=== PATIENT | female | born 1970 | race Two or more races ===

== ENCOUNTER 2017-01-06 19:17 | Emergency (ER) | payer MEDICAID ==
[2017-01-06] MEDS ORDERED: ASPIRIN 81 MG TABLET, CHEWABLE PO ONE (19:23)
--- NOTE | 2017-01-06 20:03 | RADIOLOGY REPORT (SQ) ---
EXAM DESCRIPTION: CHEST SINGLE VIEW COMPLETED DATE/TIME: 01/06/2017 7:40 pm REASON FOR STUDY: palpittions COMPARISON: 09/12/2015 EXAM PARAMETERS: NUMBER OF VIEWS: One view. TECHNIQUE: Single frontal radiographic view of the chest acquired. RADIATION DOSE: NA LIMITATIONS: None. FINDINGS: LUNGS AND PLEURA: No acute opacities, masses or pneumothorax. No pleural effusion. MEDIASTINUM AND HILAR STRUCTURES: Stable. HEART AND VASCULAR STRUCTURES: Stable. BONES: No acute findings. Similar scoliosis. HARDWARE: None in the chest. OTHER: No other significant finding. IMPRESSION: NO ACUTE RADIOGRAPHIC FINDING IN THE CHEST. TECHNICAL DOCUMENTATION: JOB ID: [id number]
[2017-01-06 20:06] LABS: ABSOLUTE BASOPHILS # (AUTO) 0.1 10^3/uL (0.0-0.2); ABSOLUTE EOSINOPHILS # (AUTO) 0.1 10^3/uL (0.0-0.6); ABSOLUTE LYMPHOCYTES (AUTO) 1.5 10^3/uL (0.5-4.7); ABSOLUTE MONOCYTES (AUTO) 0.6 10^3/uL (0.1-1.4); ABSOLUTE NEUT (AUTO) 6.7 10^3/uL (1.7-8.2); BASOPHILS % (AUTO) 0.6 % (0-2); EOSINOPHILS % (AUTO) 1.6 % (0-6); HEMATOCRIT 31.1 % (36.0-47.0); HEMOGLOBIN 9.9 g/dL (12.0-15.5); HGB HCT DIFFERENCE -1.4; LYMPHOCYTES % (AUTO) 16.6 % (13-45); MEAN CORPUSCULAR HEMOGLOBIN 24.6 pg (27.0-33.4); MEAN CORPUSCULAR HGB CONC 31.9 g/dL (32.0-36.0); MEAN CORPUSCULAR VOLUME 77 fl (80-97); MONOCYTES % (AUTO) 6.8 % (3-13); RED BLOOD COUNT 4.04 10^6/uL (3.72-5.28); RED CELL DISTRIBUTION WIDTH 18.5 % (11.5-14.0); SEGMENTED NEUTROPHILS % (AUTO) 74.4 % (42-78)
[2017-01-06 20:19] LABS: ALANINE AMINOTRANSFERASE 24 U/L (9-52); ALBUMIN 4.5 g/dL (3.5-5.0); ALKALINE PHOSPHATASE 50 U/L (38-126); ANION GAP 12 (5-19); ASPARTATE AMINO TRANSFERASE 18 U/L (14-36); BILIRUBIN,DIRECT 0.1 mg/dL (0.0-0.4); BILIRUBIN,TOTAL 0.3 mg/dL (0.2-1.3); BLOOD UREA NITROGEN 14 mg/dL (7-20); CALCIUM 9.9 mg/dL (8.4-10.2); CARBON DIOXIDE 24 mmol/L (22-30); CHLORIDE 101 mmol/L (98-107); CREATINE KINASE 153 U/L (30-135); CREATININE RESULT 0.67 mg/dL (0.52-1.25); GLUCOSE 102 mg/dL (75-110); POTASSIUM 3.9 mmol/L (3.6-5.0); SODIUM 136.9 mmol/L (137-145); TOTAL PROTEIN 7.4 g/dL (6.3-8.2)
--- NOTE | 2017-01-06 20:27 | ER Document Report ---
ED General - General Chief Complaint: Palpitations Stated Complaint: DIFFICULTY BREATHING Time Seen by Provider: 01/06/17 19:32 Notes: Patient is a 46-year-old female with a remote history of atrial fibrillation, active tobacco user who presents after an episode of palpitations with associated shortness of breath occurred approximately 1 hour prior to arrival. States she was outside smoking when she had acute onset of palpitations with associated nausea and shortness of breath. This episode lasted for approximately 10-20 minutes and it spontaneously resolved. At home my assessment she denies any symptoms or complaints. That she felt similar in the past and she had runs of atrial fibrillation when she was . She denies any history of DVT or pulmonary embolus. No cardiac history. She denies any chest pain. Nothing improves or worsens her symptoms. She has not seen a primary care doctor regarding today's concerns. TRAVEL OUTSIDE OF THE [place] IN LAST 30 DAYS: No - Related Data Allergies/Adverse Reactions: No Known Allergies Allergy (Verified 09/24/15 18:52) Past Medical History - General Information source: Patient - Social History Smoking Status: Current Every Day Smoker Chew tobacco use (# tins/day): No Frequency of alcohol use: None Drug Abuse: None Lives with: Spouse/Significant other Family History: Reviewed & Not Pertinent Patient has suicidal ideation: No Patient has homicidal ideation: No - Past Medical History Cardiac Medical History: Reports: Hx Atrial Fibrillation - Paroxysmal atrial fibrillation for the past 14 years, Hx Hypertension - unmedicated Pulmonary Medical History: Denies: Hx Tuberculosis Neurological Medical History: Denies: Hx Seizures Renal/ Medical History: Denies: Hx Peritoneal Dialysis Psychiatric Medical History: Reports: Hx Depression Past Surgical History: Reports: Hx Orthopedic Surgery - left thumb surgery, right dorsal wrist ganglion excision. Denies: Hx Appendectomy, Hx Bowel Surgery , Hx Section, Hx Cholecystectomy, Hx Coronary Artery Bypass Graft, Hx Gastric Bypass Surgery, Hx Herniorrhaphy, Hx Mastectomy, Hx Pacemaker, Hx Tonsillectomy, Hx Tubal Ligation. Comment Only: Hx Hysterectomy - [facility] [place] NEGATIVE - Immunizations Hx Diphtheria, Pertussis, Tetanus Vaccination: Yes Review of Systems - Review of Systems Notes: Constitutional: Negative for fever. HENT: Negative for sore throat. Eyes: Negative for visual changes. Cardiovascular: Negative for chest pain. Positive for palpitations that have resolved Respiratory: Positive shortness of breath that has resolved Gastrointestinal: Negative for abdominal pain, vomiting or diarrhea. Genitourinary: Negative for dysuria. Musculoskeletal: Negative for back pain. Skin: Negative for rash. Neurological: Negative for headaches, weakness or numbness. 10 point ROS negative except as marked above and in HPI. Physical Exam - Vital signs Vitals: Temp Resp BP Pulse Ox 97.6 F 14 148/105 H 100 01/06/17 19:46 01/06/17 19:46 01/06/17 19:46 01/06/17 19:46 Interpretation: Hypertensive Notes: PHYSICAL EXAMINATION: GENERAL: Well-appearing, well-nourished and in no acute distress. HEAD: Atraumatic, normocephalic. EYES: Pupils equal round and reactive to light, extraocular movements intact, sclera anicteric, conjunctiva are normal. ENT: nares patent, oropharynx clear without exudates. Moist mucous membranes. NECK: Normal range of motion, supple without lymphadenopathy LUNGS: Breath sounds clear to auscultation bilaterally and equal. No wheezes rales or rhonchi. HEART: Regular rate and rhythm without murmurs ABDOMEN: Soft, nontender, normoactive bowel sounds. No guarding, no rebound. No masses appreciated. EXTREMITIES: Normal range of motion, no pitting or edema. No cyanosis. NEUROLOGICAL: No focal neurological deficits. Moves all extremities spontaneously and on command. PSYCH: Normal mood, normal affect. SKIN: Warm, Dry, normal turgor, no rashes or lesions noted. Course - Re-evaluation Re-evalutation: 01/06/17 20:23 Patient presents with palpitations but is in no acute distress. Vitals within normal limits at time of arrival. EKG unremarkable with a normal sinus rhythm. Laboratories are unremarkable. Patient denies any chest pain, shortness of breath, or vomiting. At this time based on exam and history do not suspect a new onset arrhythmia, ACS, acute pulmonary embolus, aortic dissection. Patient does have a history of paroxysmal atrial fibrillation and she may have had an episode of this that has now spontaneously resolved. Patient encouraged to follow-up with their primary care physician as well as cardiology and a referral has been provided. At this time will discharge with return precautions and follow-up recommendations. Verbal discharge instructions given a the bedside and opportunity for questions given. Medication warnings reviewed. Patient is in agreement with this plan and has verbalized understanding of return precautions and the need for primary care follow-up in the next 24-72 hours. - Vital Signs Vital signs: Temp Pulse Resp BP Pulse Ox 97.6 F 19 144/95 H 98 01/06/17 19:46 01/06/17 20:31 01/06/17 20:31 01/06/17 20:31 - Laboratory Result Diagrams: 01/06/17 19:49 01/06/17 19:49 Laboratory results interpreted by me: 01/06/17 01/06/17 19:49 19:49 Hgb 9.9 L Hct 31.1 L MCV 77 L MCH 24.6 L MCHC 31.9 L RDW 18.5 H Sodium 136.9 L Creatine Kinase 153 H - Diagnostic Test Radiology reviewed: Image reviewed, Reports reviewed Radiology results interpreted by me: 01/06/17 20:24 Chest x-ray: No acute infiltrate or pneumothorax - EKG Interpretation by Me Additional EKG results interpreted by me: 01/06/17 20:26 Normal sinus rhythm. Rate 82. No ST elevations or depressions. QTC is 453. Discharge - Discharge Clinical Impression: Heart palpitations Condition: Good Disposition: HOME, SELF-CARE Additional Instructions: Please follow-up closely with cardiology regarding your palpitations. Return if you pass out, have shortness of breath, persistent vomiting, develop significant chest pain, or have any other symptoms that are concerning to you. Forms: Return to Work Referrals: MONSE CORTES MD [ACTIVE STAFF] - Follow up as needed
[2017-01-06 20:30] LABS: CREATINE KINASE MB 1.33 ng/mL (<4.55)
[2017-01-06 20:31] LABS: TROPONIN I < 0.012 ng/mL
[2017-01-06 20:58] VITALS: BP 144/95
--- NOTE | 2017-01-07 07:16 | EKG REPORT ---
SEVERITY:- NORMAL ECG - SINUS RHYTHM : Confirmed by: Candice Mancini MD 07-Jan-2017 07:15:52
== END 2017-01-06 20:58 | disposition home or self-care (01) ==
LOC: ER 19:17
DX: R00.2 Palpitations (principal); I48.0 Paroxysmal atrial fibrillation; R06.02 Shortness of breath; I10 Essential (primary) hypertension; F17.200 Nicotine dependence, unspecified, uncomplicated; Z86.79 Personal history of other diseases of the circulatory system; Z95.1 Presence of aortocoronary bypass graft; Z98.84 Bariatric surgery status; Z95.0 Presence of cardiac pacemaker
CPT/HCPCS: 36415; 71010; 80053; 82550; 82553; 84484; 85025; 93005; 93010; 99285

== ENCOUNTER → 2017-11-30 | Outpatient (CLI) | payer MEDICAID ==
[2017-11-30 12:32] LABS: ABSOLUTE EOSINOPHILS # (AUTO) 0.1 10^3/uL (0.0-0.6); ABSOLUTE LYMPHOCYTES (AUTO) 1.1 10^3/uL (0.5-4.7); ABSOLUTE MONOCYTES (AUTO) 0.5 10^3/uL (0.1-1.4); ABSOLUTE NEUT (AUTO) 6.4 10^3/uL (1.7-8.2); BASOPHILS % (AUTO) 0.6 % (0-2); EOSINOPHILS % (AUTO) 0.7 % (0-6); HEMATOCRIT 32.2 % (36.0-47.0); HEMOGLOBIN 10.5 g/dL (12.0-15.5); LYMPHOCYTES % (AUTO) 13.1 % (13-45); MEAN CORPUSCULAR HEMOGLOBIN 25.7 pg (27.0-33.4); MEAN CORPUSCULAR HGB CONC 32.5 g/dL (32.0-36.0); MEAN CORPUSCULAR VOLUME 79 fl (80-97); PLATELET COUNT 256 10^3/uL (150-450); RED BLOOD COUNT 4.08 10^6/uL (3.72-5.28); SEGMENTED NEUTROPHILS % (AUTO) 79.6 % (42-78); TOTAL CELLS COUNTED % (AUTO) 100 %
[2017-11-30 12:58] LABS: ALANINE AMINOTRANSFERASE 29 U/L (9-52); ALBUMIN 4.8 g/dL (3.5-5.0); ALKALINE PHOSPHATASE 40 U/L (38-126); ANION GAP 13 (5-19); ASPARTATE AMINO TRANSFERASE 17 U/L (14-36); BILIRUBIN,DIRECT 0.2 mg/dL (0.0-0.4); BILIRUBIN,TOTAL 0.3 mg/dL (0.2-1.3); BLOOD UREA NITROGEN 12 mg/dL (7-20); CARBON DIOXIDE 25 mmol/L (22-30); CHLORIDE 102 mmol/L (98-107); CHOLESTEROL 230.42 mg/dL (0-200); GLUCOSE 91 mg/dL (75-110); POTASSIUM 4.5 mmol/L (3.6-5.0); SODIUM 140.3 mmol/L (137-145); TOTAL PROTEIN 7.6 g/dL (6.3-8.2); TRIGLYCERIDES 123 mg/dL (<150)
[2017-11-30 13:09] LABS: DIRECT LDL 136 mg/dL (<100)
== END ==
LOC: OD 11:30
PROVIDERS: ATTEND Internal Medicine
DX: I48.0 Paroxysmal atrial fibrillation (principal); I10 Essential (primary) hypertension; D64.9 Anemia, unspecified; E78.5 Hyperlipidemia, unspecified; Z79.899 Other long term (current) drug therapy
CPT/HCPCS: 36415; 80053; 80061; 84443; 85025

== ENCOUNTER 2018-02-28 17:48 | Emergency (ER) | payer MEDICAID ==
[2018-02-28 18:01] VITALS: BP 144/92
--- NOTE | 2018-02-28 18:07 | ER Document Report ---
ED Medical Screen (RME) - General Chief Complaint: Fever Stated Complaint: FEVER Time Seen by Provider: 02/28/18 18:05 Notes: 47 years old female who is 12 weeks , presents today with fever chills dysuria frequency as well as elevated blood pressure. 7 pregnancies 6 children. TRAVEL OUTSIDE OF THE [place] IN LAST 30 DAYS: No - Related Data Allergies/Adverse Reactions: No Known Allergies Allergy (Verified 09/24/15 18:52) Past Medical History - Social History Chew tobacco use (# tins/day): No Frequency of alcohol use: None Drug Abuse: None - Past Medical History Cardiac Medical History: Reports: Hx Atrial Fibrillation - Paroxysmal atrial fibrillation for the past 14 years, Hx Hypertension - unmedicated Pulmonary Medical History: Denies: Hx Tuberculosis Neurological Medical History: Denies: Hx Seizures Renal/ Medical History: Denies: Hx Peritoneal Dialysis Psychiatric Medical History: Reports: Hx Depression Past Surgical History: Reports: Hx Orthopedic Surgery - left thumb surgery, right dorsal wrist ganglion excision. Denies: Hx Appendectomy, Hx Bowel Surgery , Hx Section, Hx Cholecystectomy, Hx Coronary Artery Bypass Graft, Hx Gastric Bypass Surgery, Hx Herniorrhaphy, Hx Mastectomy, Hx Pacemaker, Hx Tonsillectomy, Hx Tubal Ligation. Comment Only: Hx Hysterectomy - UHCG NEGATIVE - Immunizations Hx Diphtheria, Pertussis, Tetanus Vaccination: Yes Physical Exam - Vital signs Vitals: Temp Pulse Resp BP Pulse Ox 98.5 F 89 16 144/92 H 100 02/28/18 17:59 02/28/18 17:59 02/28/18 17:59 02/28/18 17:59 02/28/18 17:59 Course - Vital Signs Vital signs: Temp Pulse Resp BP Pulse Ox 98.5 F 89 16 144/92 H 100 02/28/18 17:59 02/28/18 17:59 02/28/18 17:59 02/28/18 17:59 02/28/18 17:59 Doctor's Discharge - Discharge Referrals: QASIM KWONG MD [Primary Care Provider] - Follow up as needed
[2018-02-28 18:26] LABS: ABSOLUTE EOSINOPHILS # (AUTO) 0.1 10^3/uL (0.0-0.6); ABSOLUTE LYMPHOCYTES (AUTO) 1.6 10^3/uL (0.5-4.7); ABSOLUTE MONOCYTES (AUTO) 0.8 10^3/uL (0.1-1.4); ABSOLUTE NEUT (AUTO) 8.4 10^3/uL (1.7-8.2); BASOPHILS % (AUTO) 0.4 % (0-2); EOSINOPHILS % (AUTO) 0.6 % (0-6); HEMOGLOBIN 11.5 g/dL (12.0-15.5); LYMPHOCYTES % (AUTO) 14.4 % (13-45); MEAN CORPUSCULAR HEMOGLOBIN 26.6 pg (27.0-33.4); MEAN CORPUSCULAR HGB CONC 33.8 g/dL (32.0-36.0); MEAN CORPUSCULAR VOLUME 79 fl (80-97); MONOCYTES % (AUTO) 7.3 % (3-13); PLATELET COUNT 278 10^3/uL (150-450); RED BLOOD COUNT 4.31 10^6/uL (3.72-5.28); RED CELL DISTRIBUTION WIDTH 22.5 % (11.5-14.0); SEGMENTED NEUTROPHILS % (AUTO) 77.3 % (42-78); TOTAL CELLS COUNTED % (AUTO) 100 %; WHITE BLOOD COUNT 10.8 10^3/uL (4.0-10.5)
[2018-02-28 18:31] LABS: APPEARANCE,URINE CLOUDY; BILIRUBIN,URINE NEGATIVE (NEGATIVE); COLOR,URINE YELLOW; GLUCOSE, URINE NEGATIVE (NEGATIVE); KETONES,URINE NEGATIVE (NEGATIVE); LEUKOCYTE ESTERASE,URINE LARGE (NEGATIVE); NITRITE,URINE NEGATIVE (NEGATIVE); PROTEIN,URINE NEGATIVE (NEGATIVE); URINE SPECIFIC GRAVITY 1.019; UROBILINOGEN,URINE NEGATIVE mg/dL (<2.0)
[2018-02-28 18:50] LABS: ALANINE AMINOTRANSFERASE 21 U/L (9-52); ALBUMIN 4.3 g/dL (3.5-5.0); ALKALINE PHOSPHATASE 47 U/L (38-126); ANION GAP 12 (5-19); ASPARTATE AMINO TRANSFERASE 15 U/L (14-36); BILIRUBIN,DIRECT 0.1 mg/dL (0.0-0.4); BILIRUBIN,TOTAL 0.2 mg/dL (0.2-1.3); BLOOD UREA NITROGEN 9 mg/dL (7-20); CARBON DIOXIDE 23 mmol/L (22-30); CHLORIDE 101 mmol/L (98-107); GLUCOSE 82 mg/dL (75-110); POTASSIUM 4.3 mmol/L (3.6-5.0); SODIUM 135.8 mmol/L (137-145); TOTAL PROTEIN 7.6 g/dL (6.3-8.2)
[2018-02-28] MEDS ORDERED: NITROFURANTOIN MONOHYD/M-CRYST 100 MG CAPSULE PO ONE (19:04)
--- NOTE | 2018-02-28 19:05 | ER Document Report ---
ED General - General Chief Complaint: Fever Stated Complaint: FEVER Time Seen by Provider: 02/28/18 18:05 Mode of Arrival: Ambulatory Information source: Patient Notes: 47-year-old female at 12 weeks presents with complaint of fever, chills, and dysuria that started today. Patient reports a fever at home of 102.5 she did take Tylenol for this. Patient has been receiving care [facility] at the [facility] department but now with women's health. She has upper abdominal upset she denies lower abdominal pain or vaginal bleeding. Patient also concern for elevated blood pressure. She denies any previous history of preeclampsia. Today's blood pressure is 144/92. TRAVEL OUTSIDE OF THE [place] IN LAST 30 DAYS: No - HPI Onset: This morning Onset/Duration: Sudden Quality of pain: Achy Severity: Mild Associated symptoms: Fever, Other - dysuria Exacerbated by: Denies Relieved by: Denies Similar symptoms previously: No Recently seen / treated by doctor: No - Related Data Allergies/Adverse Reactions: No Known Allergies Allergy (Verified 09/24/15 18:52) Past Medical History - General Information source: Patient, [facility] Records - Social History Smoking Status: Current Some Day Smoker Cigarette use (# per day): Yes - 2-3 Chew tobacco use (# tins/day): No Smoking Education Provided: Yes - 4 minutes of smoking cessation was provided to the patient Frequency of alcohol use: None Drug Abuse: None Lives with: Family Family History: Reviewed & Not Pertinent Patient has suicidal ideation: No Patient has homicidal ideation: No - Past Medical History Cardiac Medical History: Reports: Hx Atrial Fibrillation - Paroxysmal atrial fibrillation for the past 14 years, Hx Hypertension - unmedicated Pulmonary Medical History: Denies: Hx Tuberculosis Neurological Medical History: Denies: Hx Seizures Renal/ Medical History: Denies: Hx Peritoneal Dialysis Psychiatric Medical History: Reports: Hx Depression Past Surgical History: Reports: Hx Orthopedic Surgery - left thumb surgery, right dorsal wrist ganglion excision. Denies: Hx Appendectomy, Hx Bowel Surgery , Hx Section, Hx Cholecystectomy, Hx Coronary Artery Bypass Graft, Hx Gastric Bypass Surgery, Hx Herniorrhaphy, Hx Mastectomy, Hx Pacemaker, Hx Tonsillectomy, Hx Tubal Ligation. Comment Only: Hx Hysterectomy - UHCG NEGATIVE - Immunizations Hx Diphtheria, Pertussis, Tetanus Vaccination: Yes Review of Systems - Review of Systems Notes: REVIEW OF SYSTEMS: CONSTITUTIONAL : Denies fever, chills, or sweats. Denies recent illness. Denies weight loss, recent hospitalizations. EENT: Denies visual changes, eye pain. Denies nasal or sinus congestion or discharge. Denies sore throat, oral lesions, difficulty swallowing. CARDIOVASCULAR: Denies chest pain. Denies palpitations. Denies lower extremity edema. RESPIRATORY: Denies cough, cold, or chest congestion. Denies shortness of breath, wheezing. GASTROINTESTINAL: Denies abdominal pain or distention. Denies nausea, vomiting , or diarrhea. Denies blood in vomitus, stools, or per rectum. Denies black, tarry stools. Denies constipation. GENITOURINARY: Denies difficulty urinating, painful urination, frequency, blood in urine, or vaginal discharge. MUSCULOSKELETAL: Denies back or neck pain or stiffness. Denies joint pain or swelling. SKIN: Denies rash, lesions or sores. HEMATOLOGIC : Denies easy bruising or bleeding. LYMPHATIC: Denies swollen glands. NEUROLOGICAL: Denies confusion or altered mental status. Denies passing out or loss of consciousness. Denies dizziness or lightheadedness. Denies headache. Denies weakness or paralysis. Denies problems difficulty with ambulation, slurred speech. Denies sensory loss, numbness, or tingling. Denies seizures. PSYCHIATRIC: Denies anxiety or stress. Denies depression, suicidal ideation, or homicidal ideation. Denies visual or auditory hallucinations. Physical Exam - Vital signs Vitals: Temp Pulse Resp BP Pulse Ox 98.5 F 89 16 144/92 H 100 02/28/18 17:59 02/28/18 17:59 02/28/18 17:59 02/28/18 17:59 02/28/18 17:59 Interpretation: Hypertensive. No: Febrile - Notes Notes: PHYSICAL EXAMINATION: GENERAL: Well-appearing, well-nourished and in no acute distress. HEAD: Atraumatic, normocephalic. EYES: Pupils equal round and reactive to light, extraocular movements intact, conjunctiva are normal. ENT: Nares patent, oropharynx clear without exudates. Moist mucous membranes. NECK: Normal range of motion, supple without lymphadenopathy LUNGS: Breath sounds clear to auscultation bilaterally and equal. No wheezes rales or rhonchi. HEART: Regular rate and rhythm without murmurs ABDOMEN: Soft, nontender, nondistended abdomen. No guarding, no rebound. No masses appreciated. Female : deferred Musculoskeletal: Normal range of motion, no pitting or edema. No cyanosis. NEUROLOGICAL: Cranial nerves grossly intact. Normal speech, normal gait. Normal sensory, motor exams PSYCH: Normal mood, normal affect. SKIN: Warm, Dry, normal turgor, no rashes or lesions noted. Course - Re-evaluation Re-evalutation: 03/01/18 00:15 Laboratory 02/28/18 02/28/18 02/28/18 18:09 18:15 18:15 WBC 10.8 H RBC 4.31 Hgb 11.5 L Hct 34.0 L MCV 79 L MCH 26.6 L MCHC 33.8 RDW 22.5 H Plt Count 278 Seg Neutrophils % 77.3 Lymphocytes % 14.4 Monocytes % 7.3 Eosinophils % 0.6 Basophils % 0.4 Absolute Neutrophils 8.4 H Absolute Lymphocytes 1.6 Absolute Monocytes 0.8 Absolute Eosinophils 0.1 Absolute Basophils 0.0 Sodium 135.8 L Potassium 4.3 Chloride 101 Carbon Dioxide 23 Anion Gap 12 BUN 9 Creatinine 0.44 L Est GFR ( Amer) > 60 Est GFR (Non-Af Amer) > 60 Glucose 82 Calcium 10.0 Total Bilirubin 0.2 Direct Bilirubin 0.1 Neonat Total Bilirubin Not Reportable Neonat Direct Bilirubin Not Reportable Neonat Indirect Bili Not Reportable AST 15 ALT 21 Alkaline Phosphatase 47 Total Protein 7.6 Albumin 4.3 Beta HCG, Quant 144430.00 H Total Beta HCG POSITIVE Urine Color YELLOW Urine Appearance CLOUDY Urine pH 5.0 Ur Specific [place] 1.019 Urine Protein NEGATIVE Urine Glucose (UA) NEGATIVE Urine Ketones NEGATIVE Urine Blood NEGATIVE Urine Nitrite NEGATIVE Urine Bilirubin NEGATIVE Urine Urobilinogen NEGATIVE Ur Leukocyte Esterase LARGE H Urine WBC (Auto) 16 Urine RBC (Auto) 9 Urine Bacteria (Auto) 3+ Squamous Epi Cells Auto 10 Urine Mucus (Auto) MANY Urine Ascorbic Acid NEGATIVE 03/01/18 00:16 47-year-old female at 12 weeks presents with complaint of fever, chills, and dysuria that started today. Patient reports a fever at home of 102.5 she did take Tylenol for this. Patient has been receiving care initially at the health department but now with women's health. She has upper abdominal upset she denies lower abdominal pain or vaginal bleeding. Patient also concern for elevated blood pressure. She denies any previous history of preeclampsia. Today's blood pressure is 144/92. Upon arrival patient is afebrile, mildly hypertensive. She does not appear toxic or dehydrated. She is in no acute distress. CBC is without leukocytosis but does show mild anemia. CMP is without electrolyte abnormalities. Urinalysis consistent with infection. Patient did receive her first dose of Macrobid in the department and was discharged with a prescription for Macrobid. She does have follow-up with her [facility] tomorrow which she was encouraged to keep. Patient provided the opportunity to ask questions, and express concerns. Discharge instructions discussed. Patient is agreeable with discharge home. Return indications explained and discussed with the patient who displays understanding. Patient encouraged to return to the emergency department immediately with any concerns. - Vital Signs Vital signs: Temp Pulse Resp BP Pulse Ox 98.5 F 89 16 144/92 H 100 02/28/18 17:59 02/28/18 17:59 02/28/18 17:59 02/28/18 17:59 02/28/18 17:59 - Laboratory Result Diagrams: 02/28/18 18:15 02/28/18 18:15 Laboratory results interpreted by me: 02/28/18 02/28/18 02/28/18 18:09 18:15 18:15 WBC 10.8 H Hgb 11.5 L Hct 34.0 L MCV 79 L MCH 26.6 L RDW 22.5 H Absolute Neutrophils 8.4 H Sodium 135.8 L Creatinine 0.44 L Beta HCG, Quant 451688.00 H Ur Leukocyte Esterase LARGE H Discharge - Discharge Clinical Impression: Abdominal discomfort UTI (urinary tract infection) Qualifiers: Urinary tract infection type: site unspecified Hematuria presence: without hematuria Qualified Code(s): N39.0 - Urinary tract infection, site not specified Fever Qualifiers: Fever type: unspecified Qualified Code(s): R50.9 - Fever, unspecified Condition: Good Disposition: HOME, SELF-CARE Additional Instructions: Please keep your already scheduled appointment for tomorrow with women's health. Please return to the emergency department with any concerns, persistent fever, inability to take your antibiotic. Prescriptions: Nitrofurantoin Monohyd/M-Cryst [Macrobid 100 mg Capsule] 1 tab PO BID #20 capsule Forms: Elevated Blood Pressure, Smoking Cessation Education Referrals: QASIM KWONG MD [Primary Care Provider] - Follow up as needed
== END 2018-02-28 19:25 | disposition home or self-care (01) ==
LOC: ER 17:48
DX: O23.41 Unspecified infection of urinary tract in pregnancy, first trimester (principal); O16.1 Unspecified maternal hypertension, first trimester; O26.891 Other specified pregnancy related conditions, first trimester; R50.9 Fever, unspecified; O99.331 Smoking (tobacco) complicating pregnancy, first trimester; F17.210 Nicotine dependence, cigarettes, uncomplicated; Z71.6 Tobacco abuse counseling; O99.011 Anemia complicating pregnancy, first trimester; D64.9 Anemia, unspecified; Z3A.12 12 weeks gestation of pregnancy
CPT/HCPCS: 99283; 36415; 84702; 85025; 80053; 81001; J3490; J8499

== ENCOUNTER 2018-07-08 17:51 | Outpatient (CLI) | payer MEDICAID ==
[2018-07-08 18:34] LABS: APPEARANCE,URINE CLOUDY; BILIRUBIN,URINE NEGATIVE (NEGATIVE); COLOR,URINE YELLOW; GLUCOSE, URINE NEGATIVE (NEGATIVE); KETONES,URINE 20 mg/dL (NEGATIVE); LEUKOCYTE ESTERASE,URINE TRACE (NEGATIVE); NITRITE,URINE NEGATIVE (NEGATIVE); PROTEIN,URINE NEGATIVE (NEGATIVE); URINE SPECIFIC GRAVITY 1.025; UROBILINOGEN,URINE NEGATIVE mg/dL (<2.0)
[2018-07-08 18:37] LABS: BACTERIA (WET MOUNT) 4+ BACTERIA SEEN; EPITHELIALS (WET MOUNT) 3+ EPITHELIALS SEEN; RBCS (WET MOUNT) NO RBCS SEEN; T.VAGINALIS (WET MOUNT) NO TRICHOMONAS SEEN; WBCS (WET MOUNT) 3+ WBCS SEEN; YEAST (WET MOUNT) NO YEAST SEEN
[2018-07-08 18:56] LABS: URINE AMPHETAMINES SCREEN NEGATIVE; URINE BARBITURATES SCREEN NEGATIVE; URINE BENZODIAZEPINES SCREEN NEGATIVE; URINE COCAINE SCREEN NEGATIVE; URINE MARIJUANA (THC) SCREEN NEGATIVE; URINE METHADONE SCREEN NEGATIVE; URINE PHENCYCLIDINE SCREEN NEGATIVE
--- NOTE | 2018-07-08 20:54 | RADIOLOGY REPORT (SQ) ---
US LIMITED HISTORY: Cramping 31wks, HENRIQUE/MVP, cervical length. COMPARISON: None. TECHNIQUE: Multiple grayscale and color Doppler sonographic images of the uterus were obtained by the mri technologist. Selected static images were presented to the radiologist. FINDINGS: A single live fetus is identified in breech presentation. The placenta is located anterior, and is free of the cervical os. Cervix measures 4.2 cm in length and is closed. Biometry is as follows: Biparietal diameter measures 7.75 cm, which corresponds to 31 weeks 1 day; Head circumference measures 28.6 cm, which corresponds to 31 weeks 3 days; Abdominal circumference measures 26.9 cm, which corresponds to 31 weeks 0 days; Femoral length measures 5.98 cm, which corresponds to 31 weeks 1 day; Amniotic fluid is 15.2. heart rate is 144 beats per minute. IMPRESSION: Single IUP with a composite age of 31 weeks 3 days in breech presentation. HENRIQUE of 15.2. Cervix measures 4.2 cm in length and is closed.
== END 2018-07-08 20:50 | disposition home or self-care (01) ==
LOC: LC 17:51
PROVIDERS: ATTEND Student in an Organized Health Care Education/Training Program
DX: Z34.93 Encounter for supervision of normal pregnancy, unspecified, third trimester (principal)
CPT/HCPCS: 76815; 80307; 81001; 84112; 87086; 87210

== ENCOUNTER 2018-07-13 22:38 | Emergency (ER) | payer MEDICAID ==
[2018-07-13 22:52] VITALS: BP 123/82
--- NOTE | 2018-07-14 21:30 | EKG REPORT ---
SEVERITY:- NORMAL ECG - SINUS RHYTHM : Confirmed by: Candice Mancini MD 14-Jul-2018 21:29:21
== END 2018-07-14 00:43 | disposition left against medical advice (07) ==
LOC: ER 22:38
DX: Z53.21 Procedure and treatment not carried out due to patient leaving prior to being seen by health care provider (principal); R06.02 Shortness of breath
CPT/HCPCS: 93005; 93010

== ENCOUNTER 2018-08-13 12:57 | Outpatient (CLI) | payer MEDICAID ==
[2018-08-13 13:50] LABS: APPEARANCE,URINE SLIGHTLY-CLOUDY; BILIRUBIN,URINE NEGATIVE (NEGATIVE); COLOR,URINE YELLOW; GLUCOSE, URINE NEGATIVE (NEGATIVE); KETONES,URINE NEGATIVE (NEGATIVE); LEUKOCYTE ESTERASE,URINE MODERATE (NEGATIVE); NITRITE,URINE NEGATIVE (NEGATIVE); PROTEIN,URINE NEGATIVE (NEGATIVE); URINE SPECIFIC GRAVITY 1.005; UROBILINOGEN,URINE NEGATIVE mg/dL (<2.0)
--- NOTE | 2018-08-13 14:01 | Non Stress Test Report ---
Non Stress Test Datetime Report Generated by CPN: 08/13/2018 14:00 DEMOGRAPHIC EGA NST: 36.0 INDICATION Indication for Study: Other Indication for Study (NST) Other: LC MONITORING Monitor Explained: Monitor Explained; Test Explained; Patient Verbalized Understanding Time on Monitor: 08/13/2018 13:17 Time off Monitor: 08/13/2018 13:57 NST Duration: 40 NST INTERVENTIONS NST Interventions: PO Hydration Physician Notified NST: George BABY A: [id number] BABY A Movement : Present Contraction Frequency : irregular FHR Baseline : 120 Accelerations : 15X15 Decelerations : None Variability : Moderate 6-25bpm NST Review: Meets Criteria for Reactive NST NST Review and Verified By : Dwayne Virgen, RN NST Results: Reactive NST REPORT Report Trigger: Send Report
[2018-08-13 14:02] LABS: URINE AMPHETAMINES SCREEN NEGATIVE; URINE BARBITURATES SCREEN NEGATIVE; URINE BENZODIAZEPINES SCREEN NEGATIVE; URINE COCAINE SCREEN NEGATIVE; URINE MARIJUANA (THC) SCREEN NEGATIVE; URINE METHADONE SCREEN NEGATIVE; URINE PHENCYCLIDINE SCREEN NEGATIVE
== END 2018-08-13 14:02 | disposition home or self-care (01) ==
LOC: LC 12:57
PROVIDERS: ATTEND Obstetrics & Gynecology
PROC: 4A1HXCZ Monitoring of Products of Conception, Cardiac Rate, External Approach (ICD-10-PCS; principal; 2018-08-13)
DX: O47.03 False labor before 37 completed weeks of gestation, third trimester (principal); Z3A.36 36 weeks gestation of pregnancy
CPT/HCPCS: 59025; 80307; 81001

== ENCOUNTER → 2019-08-11 | Outpatient (CLI) | payer MEDICAID ==
--- NOTE | 2019-08-11 10:04 | RADIOLOGY REPORT (SQ) ---
EXAM DESCRIPTION: CT HEAD WITHOUT COMPLETED DATE/TIME: 08/11/2019 8:02 am REASON FOR STUDY: NEW DAILY PERSISTENT HEADACHE G44.52 NEW DAILY PERSISTENT HEADACHE ([facility]) COMPARISON: CT of the head without contrast from 08/12/2011. TECHNIQUE: Axial images acquired through the brain without intravenous contrast. Images reviewed wi th bone, brain and subdural windows. Additional sagittal and coronal reconstructions were generated. Images stored on PACS. All CT scanners at this facility use dose modulation, iterative reconstruction, and/or weight based d osing when appropriate to reduce radiation dose to as low as reasonably achievable (ALARA). [facility]: Dose Right [facility]: CareDose [facility]: Dose Right [facility]: Teradose 4D [facility]: Sleepy's RADIATION DOSE: CT Rad equipment meets quality standard of care and radiation dose reduction techniq ues were employed. CTDIvol: 48.6 mGy. DLP: 904 mGy-cm. LIMITATIONS: None. FINDINGS: There is no acute intracranial hemorrhage, vascular territorial infarct, extra-axial fluid collection, mass effect or midline shift. There is no effacement of the cerebral sulci or basal sub arachnoid cisterns. The alaniz-white matter differentiation is preserved. The enlarged retro-cerebell ar CSF space could represent a adam cisterna magna or an arachnoid cyst. The caliber the ventricles is concordant with the degree of sulcation and age-appropriate. The orbits and globes are intact and normal in appearance. The paranasal sinuses are clear. There i s no calvarial fracture. IMPRESSION: No acute intracranial abnormality. EVIDENCE OF ACUTE STROKE: NO. COMMENT: Quality ID # [id number]: Final reports with documentation of one or more dose reduction techniques (e.g., Automated exposure control, adjustment of the mA and/or kV according to patient size, use of iterative reconstruction technique) TECHNICAL DOCUMENTATION: JOB ID: [id number] [employer]- All Rights Reserved Reading location - IP/workstation name: [email or web address]
== END ==
LOC: RAD 10:21
PROVIDERS: ATTEND Family Medicine
DX: G44.52 New daily persistent headache (NDPH) (principal)
CPT/HCPCS: 70450

== ENCOUNTER 2020-04-02 23:56 | Emergency (ER) | payer MEDICAID ==
--- NOTE | 2020-04-03 00:57 | ER Document Report ---
ED Psych Disorder / Suicide <YESSYLATONYA Megan - Last Filed: 04/03/20 19:59> - General TRAVEL OUTSIDE OF THE [place] IN LAST 30 DAYS: No <HAO MARY - Last Filed: 04/04/20 07:12> - General Chief Complaint: Suicidal Ideation Stated Complaint: SUICIDAL IDEATION Primary Care Provider: EDY ROMO DO [NO LOCAL MD] - Follow up as needed Notes: 50-year-old female with past medical history of hypertension and suicidal thoughts presenting tonight after experiencing an episode of shortness of breath after her son's girlfriend was texting her. She became short of breath and EMS was called. Per the EMS report patient reported that she had thoughts of hurting herself therefore she was brought into the emergency department. Patient endorses suicidal thoughts that are not transient. She has had them for about 2 weeks. States that this is happened to her before where she has had thoughts of hurting herself and a plan to hurt herself. She does not know if she has a plan at this time. When asked if she would hurt herself if she were to leave the emergency department she says she does not know. She says that she does not care if she lives. When asked if she desires help the response is nothing will change situation. Is not experiencing shortness of breath at this time. (HAO MARY) - Related Data Allergies/Adverse Reactions: No Known Allergies Allergy (Verified 07/08/18 18:04) Past Medical History - Social History Smoking Status: Unknown if Ever Smoked Family History: Reviewed & Not Pertinent - Past Medical History Cardiac Medical History: Reports: Hx Atrial Fibrillation - Paroxysmal atrial fibrillation for the past 14 years, Hx Hypertension - unmedicated Pulmonary Medical History: Denies: Hx Tuberculosis Neurological Medical History: Denies: Hx Seizures Renal/ Medical History: Denies: Hx Peritoneal Dialysis Psychiatric Medical History: Reports: Hx Depression Past Surgical History: Reports: Hx Orthopedic Surgery - left thumb surgery, right dorsal wrist ganglion excision. Denies: Hx Appendectomy, Hx Bowel Surgery, Hx Section, Hx Cholecystectomy, Hx Coronary Artery Bypass Graft, Hx Gastric Bypass Surgery, Hx Herniorrhaphy, Hx Mastectomy, Hx Pacemaker, Hx Tonsillectomy, Hx Tubal Ligation. Comment Only: Hx Hysterectomy - UHCG NEGATIVE - Immunizations Hx Diphtheria, Pertussis, Tetanus Vaccination: Yes <HAO MARY - Last Filed: 04/04/20 07:12> Review of Systems - Review of Systems Constitutional: No symptoms reported EENT: No symptoms reported Cardiovascular: No symptoms reported Respiratory: No symptoms reported Gastrointestinal: No symptoms reported Genitourinary: No symptoms reported Female Genitourinary: No symptoms reported Musculoskeletal: No symptoms reported Skin: No symptoms reported Hematologic/Lymphatic: No symptoms reported Neurological/Psychological: See HPI <HAO MARY - Last Filed: 04/04/20 07:12> Physical Exam - Vital signs Interpretation: Normal <HAO MARY - Last Filed: 04/04/20 07:12> - Vital signs Vitals: Temp Pulse Resp BP Pulse Ox 98.2 F 87 16 135/95 H 98 04/03/20 00:33 04/03/20 00:33 04/03/20 00:33 04/03/20 00:33 04/03/20 00:33 - Notes Notes: Adult General: GENERAL: Alert, avoids eye contact. No acute distress HEAD: Normocephalic, atraumatic EYES: Extraocular movements intact. ENT: Airway patent. Nares patent. NECK: Full range of motion. Supple. LUNGS: Clear to auscultation bilaterally, no wheezes, rales, or rhonchi. No respiratory distress. Nontender chest wall. HEART: Regular rate and rhythm. No murmurs, rubs or gallops. ABDOMEN: Soft, nontender. Nondistended. GENITOURINARY: Deferred EXTREMITIES: Moves all 4 extremities spontaneously. BACK: No cervical, thoracic, lumbar midline tenderness. Moves all extremities with full range of motion. NEUROLOGICAL: Alert and oriented x3. Normal speech. Strength 5/ 5 in all extr emities. PSYCH: flat affect, depressed mood, not making eye contacting with provider. SKIN: Warm, dry, normal turgor. No rashes or lesions noted. (HAO MARY) Course - Laboratory Result Diagrams: 04/03/20 01:20 04/03/20 01:20 <LATONYA KRISHNAMURTHY - Last Filed: 04/03/20 19:59> - Laboratory Result Diagrams: 04/03/20 01:20 04/03/20 01:20 <HAO MARY - Last Filed: 04/04/20 07:12> - Re-evaluation Re-evalutation: 04/03/20 08:47 Report was reviewed on the patient, I did review the chart. Urinalysis is still not been collected by nursing. Awaiting tox screen but patient is also awaiting psychiatric evaluation. She is resting quietly in the room at this time in no d istress 04/03/20 19:59 Patient in no distress at this time, resting quietly in the bed, has been charly luated by the psychiatric team who believe patient may be sent to [facility], she is under IVC at this time (LATONYA KRISHNAMURTHY) 04/03/20 07:30 Patient has been IVC. Her labs are unremarkable. Still pending urinalysis. She denies any chest pain, shortness of breath or additional symptoms at this time. Chest x-ray is unremarkable for any acute abnormalities. Patient has a bed at [facility]. She was reevaluated prior to transfer. Remains medically cleared. (HAO MARY) - Vital Signs Vital signs: Temp Pulse Resp BP Pulse Ox 98.4 F 79 16 128/79 H 99 04/04/20 00:30 04/04/20 00:30 04/04/20 00:30 04/04/20 00:30 04/04/20 00:30 - Laboratory Laboratory results interpreted by me: 04/03/20 04/03/20 04/03/20 01:20 01:20 09:14 RDW 14.4 H Lymph % (Auto) 12.4 L Seg Neutrophils % 80.3 H Glucose 117 H Urine Protein 30 H Urine Ketones TRACE H Ur Leukocyte Esterase TRACE H Urine Ascorbic Acid 40 H Salicylates < 1.0 L Acetaminophen < 10 L - EKG Interpretation by Me Additional EKG results interpreted by me: 04/03/20 07:27 EKG is sinus rhythm, HR of 72, [place] 156, QT of 416, qtc 456, no st segement elevations or depressions. (HAO MARY) Discharge <LATONYA KRISHNAMURTHY - Last Filed: 04/03/20 19:59> <HAO MARY - Last Filed: 04/04/20 07:12> - Discharge Clinical Impression: Depression Qualifiers: Depression Type: unspecified Qualified Code(s): F32.9 - Major depressive disorder, single episode, unspecified Condition: Stable Disposition: PSYCH HOSP/UNIT Referrals: EDY ROMO DO [NO LOCAL MD] - Follow up as needed
[2020-04-03 01:35] LABS: ABSOLUTE EOSINOPHILS # (AUTO) 0.1 10^3/uL (0.0-0.6); ABSOLUTE MONOCYTES (AUTO) 0.4 10^3/uL (0.1-1.4); ABSOLUTE NEUT (AUTO) 6.3 10^3/uL (1.7-8.2); BASOPHILS % (AUTO) 0.6 % (0-2); EOSINOPHILS % (AUTO) 1.2 % (0-6); HEMATOCRIT 36.8 % (36.0-47.0); HEMOGLOBIN 12.9 g/dL (12.0-15.5); LYMPHOCYTES % (AUTO) 12.4 % (13-45); MEAN CORPUSCULAR HEMOGLOBIN 31.6 pg (27.0-33.4); MEAN CORPUSCULAR VOLUME 90 fl (80-97); MONOCYTES % (AUTO) 5.5 % (3-13); PLATELET COUNT 284 10^3/uL (150-450); RED BLOOD COUNT 4.08 10^6/uL (3.72-5.28); RED CELL DISTRIBUTION WIDTH 14.4 % (11.5-14.0); SEGMENTED NEUTROPHILS % (AUTO) 80.3 % (42-78); TOTAL CELLS COUNTED % (AUTO) 100 %; WHITE BLOOD COUNT 7.9 10^3/uL (4.0-10.5)
[2020-04-03 01:59] LABS: ALBUMIN 4.9 g/dL (3.5-5.0); ALKALINE PHOSPHATASE 43 U/L (38-126); ANION GAP 10 (5-19); ASPARTATE AMINO TRANSFERASE 19 U/L (14-36); BILIRUBIN,DIRECT 0.1 mg/dL (0.0-0.4); BILIRUBIN,TOTAL 0.5 mg/dL (0.2-1.3); BLOOD UREA NITROGEN 16 mg/dL (7-20); CALCIUM 9.6 mg/dL (8.4-10.2); CARBON DIOXIDE 24 mmol/L (22-30); CHLORIDE 105 mmol/L (98-107); GLUCOSE 117 mg/dL (75-110); POTASSIUM 4.1 mmol/L (3.6-5.0); TOTAL PROTEIN 7.4 g/dL (6.3-8.2)
[2020-04-03 02:00] LABS: ACETAMINOPHEN < 10 ug/mL (10-30); ALCOHOL < 10 mg/dL (NONE DETECTED); SALICYLATE < 1.0 mg/dL (2.0-20.0)
--- NOTE | 2020-04-03 02:16 | RADIOLOGY REPORT (SQ) ---
EXAM DESCRIPTION: XR CHEST 1 VIEW COMPLETED DATE/TME: 04/03/2020 01:10 CLINICAL HISTORY: 50 years, Female, shortness of breath COMPARISON: 01/06/2017 chest NUMBER OF VIEWS: 1 TECHNIQUE: Portable chest LIMITATIONS: None. FINDINGS: Heart size normal. Lungs clear. No pneumothorax IMPRESSION: Negative chest copyright 2010 [employer]- All Rights Reserved
--- NOTE | 2020-04-03 07:49 | EKG REPORT ---
SEVERITY:- BORDERLINE ECG - SINUS RHYTHM BORDERLINE T ABNORMALITIES, ANTERIOR LEADS : Confirmed by: Alo Hayes MD 03-Apr-2020 07:48:40
[2020-04-03 09:38] LABS: APPEARANCE,URINE SLIGHTLY-CLOUDY; BILIRUBIN,URINE NEGATIVE (NEGATIVE); COLOR,URINE YELLOW; GLUCOSE, URINE NEGATIVE (NEGATIVE); KETONES,URINE TRACE mg/dL (NEGATIVE); LEUKOCYTE ESTERASE,URINE TRACE (NEGATIVE); NITRITE,URINE NEGATIVE (NEGATIVE); PROTEIN,URINE 30 mg/dL (NEGATIVE); URINE SPECIFIC GRAVITY 1.024; UROBILINOGEN,URINE NEGATIVE mg/dL (<2.0)
[2020-04-03 09:48] LABS: URINE AMPHETAMINES SCREEN NEGATIVE; URINE BARBITURATES SCREEN NEGATIVE; URINE BENZODIAZEPINES SCREEN NEGATIVE; URINE COCAINE SCREEN NEGATIVE; URINE MARIJUANA (THC) SCREEN NEGATIVE; URINE METHADONE SCREEN NEGATIVE; URINE PHENCYCLIDINE SCREEN NEGATIVE
--- NOTE | 2020-04-03 13:07 | PSYCHOLOGICAL NOTE ---
Psych Note - Psych Note Date seen by psych provider: 04/03/20 Time seen by psych provider: 11:33 - Evaluation with patient from [id number]. Psych Note: Patient is a 50 year old female who presented to the Emergency Department late last evening via EMS after she called them for shortness of breath related to texting interactions with her son's girlfriend and then she reported thoughts of hurting herself. Medical documentation noted patient had flat affect, soft tone of voice and followed commands. She further told medical staff she has had suicidal thoughts for the past 2 weeks, the thoughts have happened before, she was unsure if she had a plan currently, she did not care if she lived and when asked about desire for help she stated nothing will change the situation. Patient was subsequently put on a 24 Hour Petition for Evaluation. Patient reported "I'm okay, I have a lot of stress." When asked to identify areas of stress she noted "family." Patient identified concerns and worry about her son and his girlfriend who have a "toxic relationship, my son already has 2 assault charges as a result, and I think drugs may be involved." Patient became tearful and stated "I feel like things are not going to get better, I didn't raise him like this, I feel like a failure, I feel like I shouldn't parent my other children." She stated her suicidal thoughts were more passive of just not wanting to be here. She stated "I feel a little bit better, I don't know th ough." Patient admitted to past suicidal thoughts where she planned "exactly what I was going to do, such as take pills, I never did anything though." She denied current outpatient mental health services. She acknowledged she was doing therapy at [facility] for 6-7 months not long ago. Patient admitted to a previous mental health hospitalization at [facility] in 2014 "when I was , left me, he was being psychotic, there was a lot of stress." She stated this was her only hospitalization, she was put on medications, but stopped them when discharged due to heart issues (AFib per patient). When asked about her thoughts on medication she commented "if it will help me, because my anxiety was bad yesterday and triggered by son's girlfriend." She acknowledged "I am a private person, I don't want to bother my family, but my could be included." Patient was alert and oriented to self, person, place, time and situation. Mood was depressed with congruent affect as evidenced by being tearful/crying. She was not able to deny suicidal ideation, noted she has had passive thoughts for the last 2 weeks, and admitted to past thoughts where she had plans to take pills but never took action. Patient did not appear to be responding to internal stimuli as evidenced by fair eye contact and answering questions appropriately when addressed. Thought processes were linear and organized. Conversational speech was within normal limits for rate and prosody, with soft tone. Intellectual abilities are estimated to be average. Insight, judgment and impulse control were poor as evidenced by thoughts of worthlessness (feeling like a failure as a parent, not wanting to parent the other children as a result) and hopelessness (feel like things are not going to get better). Clinical Presentation: Passive Suicidal Ideation for the past 2 weeks Worthlessness Hopelessness Past Suicidal Ideation with thoughts of plan to take pills but no action ever taken per patient Family Distress- mentioned son and his girlfriend's toxic relationship Impression/Plan: Recommendation for FULL IVC (patient was a 24 Hour Petition for Evaluation). Patient did not deny current suicidal ideation, noted passive suicidal ideation for the past 2 weeks, was tearful/crying when talking about her son, expressed worthlessness (feeling like a failure as a parent, not wanting to parent the other children as a result) and hopelessness (feel like things are not going to get better). She is not currently on medication (was hospitalized on 2013 at [facility] but stopped the medication due to heart: AFib issues) and not in outpatient therapy (did it at [facility] for 6-7 months previously). Consulted with Dr. Edouard regarding the management and care of patient. ED Physician in agreement with recommendations.
[2020-04-04 00:31] VITALS: BP 128/79
== END 2020-04-04 01:42 ==
LOC: ER 23:56
DX: F32.9 Major depressive disorder, single episode, unspecified (principal); R45.851 Suicidal ideations; I10 Essential (primary) hypertension; I48.91 Unspecified atrial fibrillation
CPT/HCPCS: 36415; 80053; 80307; 81001; 85025; 93005; 93010; 99285